=== PATIENT | male | born 1960 | race Caucasian/White ===

== ENCOUNTER → 2020-10-13 | Outpatient (CLI) | payer OTHER ==
[~2020-10-13] MED LIST: ALBUTEROL; ALLERGY RELIEF10 M1 PO; AMLODIPINE BESYL5 MG PO; CYCLOBENZAPRINE5 MG PO; GABAPENTIN600 MG PO; HYDROCODON-ACE1 EAC2 PO; IBUPROFEN600 MG PO; LOSARTAN; OMEPRAZOLE20 MG PO; SYMBICORT 16010.2 GM INH; ULTRAM50 MG PO
== END ==
LOC: KOH-I 10-12 15:15
DX: M51.16 Intervertebral disc disorders with radiculopathy, lumbar region (principal); M48.061 Spinal stenosis, lumbar region without neurogenic claudication
CPT/HCPCS: 72148

== ENCOUNTER → 2020-12-15 | Outpatient (CLI) | payer OTHER ==
[2020-12-15 10:43] LABS: HEMOGLOBIN 13.2 gm/dl (14.0-17.5); RED BLOOD COUNT 3.8 M/UL (4.20-5.50)
[2020-12-15 11:31] LABS: BUN/CREATININE RATIO 10 (0-10)
== END ==
LOC: OPSV2 09:00 → EDSTATUS 09:00 → OPSV2 09:30
PROVIDERS: Orthopaedic Surgery
DX: Z01.818 Encounter for other preprocedural examination (principal); Z01.812 Encounter for preprocedural laboratory examination; Z01.810 Encounter for preprocedural cardiovascular examination; M48.061 Spinal stenosis, lumbar region without neurogenic claudication; M54.16 Radiculopathy, lumbar region
CPT/HCPCS: 36415; 71046; 80048; 81001; 85025; 85610; 85730; 87086; 93005

== ENCOUNTER → 2022-02-28 | Outpatient (CLI) | payer OTHER | LOC: CT 13:30 | DX: R05.3 Chronic cough (principal); K22.81 Esophageal polyp | CPT/HCPCS: 71260; Q9967 ==

== ENCOUNTER → 2022-04-03 | Day surgery (SDC) | payer OTHER | END | disposition home or self-care (01) | LOC: OR 09:00 | DX: K29.50 Unspecified chronic gastritis without bleeding (principal); K76.6 Portal hypertension; K31.89 Other diseases of stomach and duodenum; K22.89 Other specified disease of esophagus; I85.00 Esophageal varices without bleeding; I10 Essential (primary) hypertension; R74.01 Elevation of levels of liver transaminase levels; Z79.899 Other long term (current) drug therapy; E66.9 Obesity, unspecified; Z68.34 Body mass index [BMI] 34.0-34.9, adult | CPT/HCPCS: J2704; J7040 ==